=== PATIENT | female | born 1975 | race Two or more races ===

== ENCOUNTER 2022-01-18 17:40 | Emergency (ER) | payer SELFPAY ==
[~2022-01-18] VITALS: Ht 160 cm; Wt 79.4 kg
[2022-01-18 18:45] VITALS: BP 137/75
== END 2022-01-18 23:29 | disposition left against medical advice (07) ==
LOC: EDBD 17:40 → ER 17:40
DX: F41.9 Anxiety disorder, unspecified (principal); Z53.21 Procedure and treatment not carried out due to patient leaving prior to being seen by health care provider